=== PATIENT | female | born 1965 | race Hispanic/Latino ===

== ENCOUNTER 2018-10-27 07:59 | Outpatient (RCR) | payer OTHER | END 2018-10-29 | LOC: PT 07:59 | PROVIDERS: ATTEND Specialist | DX: M24.612 Ankylosis, left shoulder (principal); M77.8 Other enthesopathies, not elsewhere classified ==

== ENCOUNTER 2018-11-08 08:19 | Outpatient (RCR) | payer OTHER | END 2018-11-28 | LOC: PT 08:19 | PROVIDERS: ATTEND Specialist | DX: M24.612 Ankylosis, left shoulder (principal); M75.82 Other shoulder lesions, left shoulder ==